=== PATIENT | male | born 1950 | race African-American/Black ===

== ENCOUNTER 2020-06-25 01:34 | Inpatient (IN) | payer OTHER ==
[2020-06-25 01:56] LABS: #Eosinphils 0.2 thou/uL (0.0-0.7); #Lymphocytes 1.5 thou/uL (1.20-3.40); #Monocytes 0.7 thou/uL (0.11-0.59); #Neutrophils 4.7 thou/uL (1.40-6.50); %Basophils 0.2 % (0.0-1.0); %Eosinophils 2.9 % (0.0-10.0); %Lymphocytes 20.6 % (21.0-51.0); %Monocytes 9.5 % (0.0-10.0); %Neutrophils 66.8 % (42.0-75.0); Hemoglobin 12.4 g/dL (14.0-18.0); Mean Corpuscular HGB CONC 32.4 g/dL (32.0-36.0); Mean Corpuscular Hemoglobin 29.5 pg (27.0-31.0); Mean Corpuscular Volume 90.8 fL (78.0-98.0); Mean Platelet Volume 9.9 fL (7.4-10.4); Platelet Count 148 thou/uL (130-400); RBC Distribution Width 15.9 % (11.5-14.5); White Blood Cell (WBC) Count 7.1 thou/uL (4.8-10.8)
[2020-06-25 02:07] LABS: INR-International Normal Ratio 1.1; PTT 32.6 sec (22.9-36.1); Prothrombin Time 14.7 sec (12.0-14.7)
[2020-06-25 02:19] LABS: ALT (SGPT) 10 U/L (8-55); AST (SGOT) 18 U/L (5-34); Albumin 4.3 g/dL (3.4-4.8); Alkaline Phosphatase 84 U/L (40-110); Anion Gap 18 mmol/L (10-20); BUN (Urea Nitrogen) 33 mg/dL (8.4-25.7); Bilirubin, Total 0.5 mg/dL (0.2-1.2); CK (CPK) 438 U/L (30-200); Calc. Creatinine Clearance 0 mL/min (70-130); Calcium 8.6 mg/dL (7.8-10.44); Carbon Dioxide 21 mmol/L (23-31); Chloride 108 mmol/L (98-107); Globulin 4.1 g/dL (2.4-3.5); Glucose 137 mg/dL (83-110); Potassium 4.7 mmol/L (3.5-5.1); Protein, Total 8.4 g/dL (5.8-8.1); Sodium 142 mmol/L (136-145)
[2020-06-25] MEDS ORDERED: Aspirin 325 MG TAB ONE (03:37)
[2020-06-25 04:12] LABS: Bacteria/HPF None Seen HPF (None Seen); Bilirubin Negative (Negative); Blood, Urine Negative (Negative); Clarity Clear (Clear); Glucose, Urine (Dipstick) Normal (Negative); Ketone, Urine Negative (Negative); Leukocyte 500 Leu/uL (Negative); Nitrite Negative (Negative); Protein, Urine (Dipstick) Negative (Neg-Trace); Squamous Epithelial 0-3 HPF (0-3); Urobilinogen Normal mg/dL (Less than 2); pH, Urine 5.5 (5.0-9.0)
[2020-06-25] MEDS ORDERED: cefTRIAXone\\ROCEPHIN 1 GM VIAL ONE (04:22)
[2020-06-25 04:26] LABS: Acetaminophen Less than 6.0 mcg/mL (10.0-30.0); Alcohol Less than 10 mg/dL (Less than 10); Salicylate Less than 8.0 mg/dL (15.0-30.0)
[2020-06-25 04:27] LABS: Amphetamine Not Detected (NotDetected); Barbiturates Screen Not Detected (NotDetected); Benzodiazepine Screen Not Detected (NotDetected); Cocaine Metabolite Screen Not Detected (NotDetected); Medtox Control Line Valid? VALID (VALID); Medtox Reader # READER 1; Methadone Not Detected (NotDetected); Methamphetamine Not Detected (NotDetected); Opiate Screen Detected (NotDetected); Oxycodone Screen Not Detected (NotDetected); Phencyclidine (PCP) Not Detected (NotDetected); THC/Cannabinoid Screen Not Detected (NotDetected); Tricyclic Screen Not Detected (NotDetected)
[2020-06-25] MEDS ORDERED: hydrALAZINE 20 MG/ML VIAL SLOW IVP PRN ×2 (05:37→05:57)
[2020-06-25] MEDS ORDERED: Acetaminophen 325 MG TAB PO PRN (05:37)
[2020-06-25] MEDS ORDERED: Promethazine HCl 12.5 MG in Sodium Chloride 0.9% 50 ML IVPB PRN (05:37)
[2020-06-25] MEDS ORDERED: Labetalol HCl 100 MG/20 ML VIAL SLOW IVP PRN ×2 (05:37→05:57)
[2020-06-25] MEDS ORDERED: Ondansetron PF 4 MG/2 ML Vial IVP PRN (05:37)
[2020-06-25] MEDS ORDERED: cloNIDine 0.1 MG TAB PO PRN (05:37)
[2020-06-25] MEDS ORDERED: Guaifenesin DM 100-10/5 ML UDCUP PO PRN (05:37)
[2020-06-25] MEDS ORDERED: Acetaminophen/Codeine 30-300mg Tablet PO PRN (05:39)
[2020-06-25] MEDS ORDERED: Non-Formulary Item 1 EACH (Cyclobenzaprine Hcl [Cyclobenzaprine Hcl] 5 MG Tablet) PO PRN (05:39)
[2020-06-25] MEDS ORDERED: Electrolyte Replacement Protocol 1 EACH FS PRN (05:45)
[2020-06-25] MEDS ORDERED: Cyclobenzaprine 10 MG TAB PO PRN (06:45)
[2020-06-25 07:33] VITALS: BMI 19.9
[2020-06-25] MEDS ORDERED: Famotidine 20 MG TAB PO SCH (09:00)
[2020-06-25] MEDS ORDERED: Aspirin 81 mg Enteric Coated Tablet PO SCH (09:00)
[2020-06-25] MEDS ORDERED: Amlodipine 5 MG TAB PO SCH (09:00)
[2020-06-25] MEDS: Metoprolol Tartrate 25 MG TAB PO SCH ×2 (09:34→20:55)
[2020-06-25] MEDS: Finasteride 5 MG TAB PO SCH (09:34)
[2020-06-25] MEDS: Sodium Chloride 0.9% 1,000 ML IV SCH (09:34)
[2020-06-25] MEDS: Polyethylene Glycol 3350 17 GM Packet PO SCH (09:34)
[2020-06-25] MEDS ORDERED: Iopamidol-370 76% 500 ML 1 ML ONE (11:46)
[2020-06-25 15:37] LABS: Albumin 3.9 g/dL (3.4-4.8); Anion Gap 14 mmol/L (10-20); BUN (Urea Nitrogen) 26 mg/dL (8.4-25.7); BUN/Creatinine Ratio 18.57; Calc. Creatinine Clearance 39 mL/min (70-130); Calcium 8.6 mg/dL (7.8-10.44); Carbon Dioxide 21 mmol/L (23-31); Chloride 108 mmol/L (98-107); Glucose 118 mg/dL (83-110); Magnesium 2.2 mg/dL (1.6-2.6); Phosphorus 3.6 mg/dL (2.3-4.7); Potassium 4.2 mmol/L (3.5-5.1); Sodium 139 mmol/L (136-145)
[2020-06-25 17:59] LABS: SARS-CoV-2 PCR by NAA Not Detected (NotDetected)
[2020-06-25] MEDS ORDERED: Enoxaparin Sodium 40 MG/0.4 ML SYRINGE SC SCH (21:00)
[2020-06-25] MEDS ORDERED: Mirtazapine 30 MG TAB PO SCH (21:00)
[2020-06-25] MEDS ORDERED: Atorvastatin Calcium 40 MG TAB PO SCH (21:00)
[2020-06-26] MEDS: Sodium Chloride 0.9% 1,000 ML IV SCH (04:12)
[2020-06-26 04:29] LABS: #Eosinphils 0.1 thou/uL (0.0-0.7); #Monocytes 0.5 thou/uL (0.11-0.59); %Basophils 0.7 % (0.0-1.0); %Eosinophils 3.1 % (0.0-10.0); %Monocytes 11.3 % (0.0-10.0); Hemoglobin 11.7 g/dL (14.0-18.0); Mean Corpuscular HGB CONC 31.5 g/dL (32.0-36.0); Mean Corpuscular Hemoglobin 28.6 pg (27.0-31.0); Mean Corpuscular Volume 90.9 fL (78.0-98.0); Mean Platelet Volume 10.5 fL (7.4-10.4); Platelet Count 141 thou/uL (130-400); RBC Distribution Width 15.8 % (11.5-14.5); Red Blood Cell (RBC) Count 4.08 mill/uL (4.70-6.10); White Blood Cell (WBC) Count 4.8 thou/uL (4.8-10.8)
[2020-06-26 05:16] LABS: Anion Gap 13 mmol/L (10-20); BUN (Urea Nitrogen) 25 mg/dL (8.4-25.7); Calc. Creatinine Clearance 42 mL/min (70-130); Calcium 8.3 mg/dL (7.8-10.44); Carbon Dioxide 22 mmol/L (23-31); Cardiac Risk 3.4 (Less than 4.5); Chloride 108 mmol/L (98-107); Cholesterol 135 mg/dl (< 200 Desired); Glucose 89 mg/dL (83-110); HDL Cholesterol 40 mg/dL (>60 Neg Risk); LDL Cholesterol, Calculated 78 mg/dL; Magnesium 2.2 mg/dL (1.6-2.6); Potassium 4.3 mmol/L (3.5-5.1); Sodium 139 mmol/L (136-145); Triglycerides 85 mg/dL (Less than 150)
[2020-06-26] MEDS ORDERED: cefTRIAXone\\ROCEPHIN 1 GM in Sodium Chloride 0.9% 100 ML IVPB SCH (05:45)
[2020-06-26] MEDS ORDERED: Losartan 25 MG TAB PO SCH (09:00)
[2020-06-26] MEDS ORDERED: Aspirin Chewable 81 MG TAB PO SCH (09:00)
[2020-06-26] MEDS ORDERED: Famotidine 20 MG TAB PO SCH (09:00)
[2020-06-26] MEDS ORDERED: Clopidogrel Bisulfate 75 MG TAB PO SCH (09:00)
[2020-06-26] MEDS: Finasteride 5 MG TAB PO SCH (09:04)
[2020-06-26] MEDS: Metoprolol Tartrate 25 MG TAB PO SCH (09:04)
[2020-06-26] MEDS: Polyethylene Glycol 3350 17 GM Packet PO SCH (09:05)
[2020-06-26 12:36] VITALS: BP 138/63; TEMP 98.4
== END 2020-06-26 14:19 | disposition home health service (06) | DRG 689 ==
LOC: ERS 01:34 → 2SE 04:16
PROVIDERS: ADMIT Internal Medicine; ATTEND Internal Medicine
DX: N30.00 Acute cystitis without hematuria (principal); G93.41 Metabolic encephalopathy; G45.9 Transient cerebral ischemic attack, unspecified; I42.9 Cardiomyopathy, unspecified; G81.91 Hemiplegia, unspecified affecting right dominant side; I50.22 Chronic systolic (congestive) heart failure; N17.9 Acute kidney failure, unspecified; Z20.822 Contact with and (suspected) exposure to COVID-19; I11.0 Hypertensive heart disease with heart failure; Z87.891 Personal history of nicotine dependence; Z79.899 Other long term (current) drug therapy; Z86.73 Personal history of transient ischemic attack (TIA), and cerebral infarction without residual deficits; Z95.810 Presence of automatic (implantable) cardiac defibrillator; R29.810 Facial weakness; D49.89 Neoplasm of unspecified behavior of other specified sites
CPT/HCPCS: 36416; 51701; 70450; 70496; 70498; 71045; 80048; 80053; 80061; 80306; 80307; 81003; 81015; 82550; 83605; 83735; 84484; 85025; 85610; 85730; 87086; 87635; 93005; 93306; 96365; J0696; J1642; J1650; J2997; J3490; Q9967; U0003; U0005

== ENCOUNTER 2021-11-26 11:40 | Emergency (ER) | payer OTHER | END 2021-11-26 12:34 | disposition home or self-care (01) | LOC: ERS 11:40 | DX: R42 Dizziness and giddiness (principal); I11.0 Hypertensive heart disease with heart failure; I50.9 Heart failure, unspecified; F17.200 Nicotine dependence, unspecified, uncomplicated; Z85.46 Personal history of malignant neoplasm of prostate; Z79.899 Other long term (current) drug therapy | CPT/HCPCS: 93005; 99284 ==